=== PATIENT | male | born 1990 | race Two or more races ===

== ENCOUNTER 2025-03-30 11:34 | Emergency (ER) | payer BC ==
[~2025-03-30] VITALS: Ht 177.8 cm; Wt 97.5 kg
[2025-03-30] MEDS ORDERED: ALBUTEROL FS 2.5 MG/3 ML VIAL.NEB ONE (12:17)
[2025-03-30 12:18] VITALS: O2SAT 95
[2025-03-30] MEDS: ALBUTEROL FS 2.5 MG/3 ML VIAL.NEB NEB ONE (12:21)
[2025-03-30 12:29] VITALS: O2SAT 99
[2025-03-30] MEDS ORDERED: PRED20TA PO (14:22)
[2025-03-30] MEDS ORDERED: ALBUTEROL FS 2.5 MG/0.5 ML VIAL.NEB ONE (14:43)
[2025-03-30] MEDS: ALBUTEROL FS 2.5 MG/0.5 ML VIAL.NEB NEB ONE (14:46)
[2025-03-30 14:47] VITALS: O2SAT 91
[2025-03-30 14:57] VITALS: O2SAT 99
[2025-03-30 15:07] VITALS: BP 126/77; TEMP 97.9; O2SAT 96
== END 2025-03-30 15:07 | disposition home or self-care (01) ==
LOC: ER 11:39
DX: J45.901 Unspecified asthma with (acute) exacerbation (principal); Z79.52 Long term (current) use of systemic steroids; Z60.2 Problems related to living alone
CPT/HCPCS: 99285; 71045; 93005; 94640; J7512